=== PATIENT | female | born 1990 | race Two or more races ===

== ENCOUNTER 2019-12-20 19:48 | Observation (INO) | payer BC, MEDICAID ==
[~2019-12-20] VITALS: Ht 162.6 cm; Wt 75.7 kg
[2019-12-20] MEDS ORDERED: LACTATED RINGERS 1,000 ML IV STA (20:43)
[2019-12-20 21:01] LABS: CLARITY URINE CLEAR (CLEAR); COLOR URINE YELLOW (YELLOW); KETONES URINE NEGATIVE (NEGATIVE); LEUKOCYTE ESTERASE URINE NEGATIVE (NEGATIVE); NITRITE URINE NEGATIVE (NEGATIVE); OCCULT BLOOD URINE NEGATIVE (NEGATIVE); PROTEIN URINE 1+ (NEGATIVE)
[2019-12-20] MEDS ORDERED: ONDANSETRON HCL 4MG/2ML INJ IV NR (22:45)
[2019-12-21] MEDS ORDERED: TERBUTALINE SULFATE 1MG/ML VIAL ONE (00:46)
== END 2019-12-20 23:25 | disposition home or self-care (01) ==
LOC: 8 EST LDRP 19:48
PROVIDERS: ADMIT Obstetrics & Gynecology; ATTEND Obstetrics & Gynecology
DX: O26.893 Other specified pregnancy related conditions, third trimester (principal); R10.9 Unspecified abdominal pain; Z3A.35 35 weeks gestation of pregnancy
CPT/HCPCS: 81003; 96374; 99281; G0378; J2405; J3105

== ENCOUNTER 2020-01-04 08:00 | Observation (INO) | payer BC, MEDICAID ==
[~2020-01-04] VITALS: Ht 165.1 cm; Wt 81.6 kg
[2020-01-04] MEDS ORDERED: PREN1TAB78 MT (09:30)
== END 2020-01-04 15:02 | disposition home or self-care (01) ==
LOC: 8 EST LDRP 08:00
PROVIDERS: ADMIT Obstetrics & Gynecology; ATTEND Obstetrics & Gynecology
DX: O62.8 Other abnormalities of forces of labor (principal); O26.893 Other specified pregnancy related conditions, third trimester; R10.9 Unspecified abdominal pain; Z3A.37 37 weeks gestation of pregnancy
CPT/HCPCS: G0378 ×2

== ENCOUNTER 2020-01-05 10:12 | Inpatient (IN) | payer BC, MEDICAID ==
[~2020-01-05] VITALS: Ht 162.6 cm; Wt 78.6 kg
[~2020-01-05 10:12] MED LIST: PREN1TAB78 MT
[2020-01-05] MEDS ORDERED: NALOXONE HCL 0.4 MG/ML 1ML VIAL IM PRN (12:00)
[2020-01-05] MEDS ORDERED: PENICILLIN G POTASSIUM 5 MMU in DEXT 5% WATER 100 ML IV SCH (12:00)
[2020-01-05] MEDS ORDERED: METHYLERGONOVINE MALEATE 0.2 MG/ML IM PRN (12:00)
[2020-01-05] MEDS ORDERED: MINERAL OIL 30ML BOTTLE PR NR (12:00)
[2020-01-05] MEDS ORDERED: LIDOCAINE HCL 1% 20ML VIAL (Pyxis) INJ INFIL SCH (12:00)
[2020-01-05] MEDS ORDERED: RHO(D) IMMUNE GLOBULIN 300 MCG/SYR IM ONE (12:00)
[2020-01-05 12:17] LABS: BASOPHILS % 0.5 % (0.0-2.0); EOSINOPHILS % 0.2 % (0.0-5.0); HEMATOCRIT. 32.3 % (36.0-48.0); HEMOGLOBIN. 10.9 g/dL (12.0-16.0); LYMPHOCYTES % 11.9 % (20.0-50.0); MEAN CORPUSCULAR HEMOGLOBIN 26.8 pg (28.0-32.0); MEAN CORPUSCULAR VOLUME 79.7 fL (81.0-99.0); MEAN PLATELET VOLUME 10.8 fl (7.4-10.4); MONOCYTES % 4.2 % (2.0-8.0); NEUTROPHILS % 83.2 % (40.0-76.0); PLATELET 234 x1000/uL (130-400); RED BLOOD CELL COUNT 4.05 mill/uL (4.2-5.4); RED CELL DISTRIBUTION WIDTH 15.4 % (11.6-14.6)
[2020-01-05 12:38] LABS: INR 0.9; PARTIAL THROMBOPLASTIN TIME 27.2 sec (23.4-31.0); PROTHROMBIN TIME 9.8 sec (9.6-11.0)
[2020-01-05] MEDS: DEXT 5%/LR + PITOCIN 20UNITS/L 1,000 ML IV SCH (13:06)
[2020-01-05] MEDS: PENICILLIN G POTASSIUM 2.5 MMU in DEXTROSE 5% WATER 50 ML IV SCH ×2 (14:30→20:01)
[2020-01-05 15:40] LABS: HEPATITIS B SURFACE ANTIGEN NEGATIVE
[2020-01-05] MEDS ORDERED: PENICILLIN G POTASSIUM 2.5 MMU in DEXTROSE 5% WATER 50 ML IV SCH (16:00)
[2020-01-05 17:07] LABS: CHLORIDE 109 mEq/L (98-107)
[2020-01-05] MEDS: LACTATED RINGERS 1,000 ML IV PRN (18:33)
[2020-01-05] MEDS: BUTORPHANOL TARTRATE 2 MG/ML VIAL IV PRN (22:32)
[2020-01-06 00:17] LABS: CLARITY URINE CLOUDY (CLEAR); COLOR URINE DARK YELLOW (YELLOW); KETONES URINE 3+ (NEGATIVE); LEUKOCYTE ESTERASE URINE 1+ (NEGATIVE); NITRITE URINE NEGATIVE (NEGATIVE); OCCULT BLOOD URINE TRACE (NEGATIVE); PH URINE 6.5 (4.5-8.0); PROTEIN URINE 3+ (NEGATIVE)
[2020-01-06] MEDS: PENICILLIN G POTASSIUM 2.5 MMU in DEXTROSE 5% WATER 50 ML IV SCH ×5 (00:20→16:08)
[2020-01-06 00:28] LABS: *BARBITURATES SCREEN URINE NEGATIVE (NEGATIVE); *COCAINE SCREEN URINE NEGATIVE (NEGATIVE)
[2020-01-06 00:29] LABS: *AMPHETAMINES SCREEN URINE NEGATIVE (NEGATIVE); *BENZODIAZEPINES SCREEN URINE NEGATIVE (NEGATIVE); METHADONE URINE SCREEN NEGATIVE (NEGATIVE); OPIATES URINE SCREEN NEGATIVE (NEGATIVE); PHENCYCLIDINE URINE SCREEN NEGATIVE (NEGATIVE)
[2020-01-06 00:30] LABS: CANNABINOID URINE SCREEN NEGATIVE (NEGATIVE)
[2020-01-06] MEDS: LACTATED RINGERS 1,000 ML IV PRN ×2 (01:57→10:21)
[2020-01-06] MEDS: BUTORPHANOL TARTRATE 2 MG/ML VIAL IV PRN (05:05)
[2020-01-06] MEDS ORDERED: ROPIVACAINE HCL/PF EPIDURAL 200 ML EPI SCH (07:30)
[2020-01-06] MEDS ORDERED: ACETAMINOPHEN 650MG/20.3ML UDC PO PRN (11:30)
[2020-01-06] MEDS ORDERED: ACETAMINOPHEN 325MG TABLET PO PRN (11:45)
[2020-01-06] MEDS ORDERED: LIDOCAINE HCL 2%/EPINEPHRINE 1:100,000 20 ML VIAL INFIL ONE (11:52)
[2020-01-06] MEDS ORDERED: FENTANYL CITRATE/PF 50MCG/ML 2ML VIAL ONE (14:20)
[2020-01-06] MEDS ORDERED: DEXT 5%/LR + PITOCIN 20UNITS/L 1,000 ML IV SCH (18:47)
[2020-01-06] MEDS: DEXT 5%/LR + PITOCIN 20UNITS/L 1,000 ML IV SCH (18:55)
[2020-01-06] MEDS ORDERED: DIPHENHYDRAMINE 25MG CAPSULE PO PRN (19:00)
[2020-01-06] MEDS ORDERED: IBUPROFEN 400MG TABLET PO PRN (19:00)
[2020-01-06] MEDS ORDERED: LANOLIN OINT 7GM TUBE TOP PRN (19:00)
[2020-01-06] MEDS ORDERED: METHYLERGONOVINE MALEATE 0.2 MG/ML IM PRN (19:00)
[2020-01-06] MEDS ORDERED: RHO(D) IMMUNE GLOBULIN 300 MCG/SYR IM PRN (19:00)
[2020-01-06] MEDS: IBUPROFEN 800MG TABLET PO PRN (19:13)
[2020-01-06 20:00] VITALS: BP 140/82
[2020-01-06 20:30] VITALS: BP 142/82
[2020-01-07] VITALS (13 sets, daily range): BP systolic 124–188; BP diastolic 72–119
[2020-01-07 07:27] LABS: BASOPHILS % 0.3 % (0.0-2.0); EOSINOPHILS % 0.6 % (0.0-5.0); HEMATOCRIT. 27.6 % (36.0-48.0); HEMOGLOBIN. 9.2 g/dL (12.0-16.0); MEAN CORPUSCULAR HEMOGLOBIN 26.7 pg (28.0-32.0); MEAN CORPUSCULAR VOLUME 79.8 fL (81.0-99.0); MONOCYTES % 5.6 % (2.0-8.0); NEUTROPHILS % 81.5 % (40.0-76.0); PLATELET 208 x1000/uL (130-400); RED BLOOD CELL COUNT 3.46 mill/uL (4.2-5.4); RED CELL DISTRIBUTION WIDTH 15.2 % (11.6-14.6)
[2020-01-07] MEDS: PRENATAL VIT/FE FUMARATE/FA TABLET PO SCH (09:34)
[2020-01-07] MEDS ORDERED: LABETALOL HCL 200MG TABLET ONE (19:37)
[2020-01-07] MEDS ORDERED: HYDRALAZINE 20MG/ML VIAL ONE (19:43)
[2020-01-07] MEDS ORDERED: HYDRALAZINE 20MG/ML VIAL IV SCH (19:45)
[2020-01-07] MEDS ORDERED: MAGNESIUM 4 G PREMIX 100 ML IV NR (20:15)
[2020-01-07] MEDS ORDERED: LABETALOL HCL 200MG TABLET PO NR (20:18)
[2020-01-07] MEDS ORDERED: IOHEXOL-350 100 ML BOTTLE ONE (21:13)
[2020-01-07] MEDS: MAGNESIUM 20 G PREMIX (L & D) 500 ML IV SCH (21:28)
[2020-01-07 22:02] LABS: BASOPHILS % 0.3 % (0.0-2.0); EOSINOPHILS % 0.5 % (0.0-5.0); HEMATOCRIT. 31.3 % (36.0-48.0); HEMOGLOBIN. 10.5 g/dL (12.0-16.0); LYMPHOCYTES % 10.5 % (20.0-50.0); MEAN CORPUSCULAR HEMOGLOBIN 26.8 pg (28.0-32.0); MEAN CORPUSCULAR VOLUME 79.9 fL (81.0-99.0); MEAN PLATELET VOLUME 9.6 fl (7.4-10.4); MONOCYTES % 4.4 % (2.0-8.0); NEUTROPHILS % 84.3 % (40.0-76.0); PLATELET 228 x1000/uL (130-400); RED BLOOD CELL COUNT 3.92 mill/uL (4.2-5.4); RED CELL DISTRIBUTION WIDTH 15.7 % (11.6-14.6)
[2020-01-07 22:05] LABS: CHLORIDE 108 mEq/L (98-107)
[2020-01-07 22:22] LABS: D-DIMER 10.78 mg/L FEU (<0.50); INR 0.9; PARTIAL THROMBOPLASTIN TIME 27.7 sec (23.4-31.0); PROTHROMBIN TIME 9.5 sec (9.6-11.0)
[2020-01-08] VITALS: BP 133/85
[2020-01-08 00:25] LABS: CLARITY URINE CLEAR (CLEAR); COLOR URINE YELLOW (YELLOW); KETONES URINE NEGATIVE (NEGATIVE); LEUKOCYTE ESTERASE URINE NEGATIVE (NEGATIVE); NITRITE URINE NEGATIVE (NEGATIVE); OCCULT BLOOD URINE 1+ (NEGATIVE); PROTEIN URINE NEGATIVE (NEGATIVE); SPECIFIC GRAVITY URINE 1.034 (1.005-1.030)
[2020-01-08] MEDS: FUROSEMIDE 40MG/4ML VIAL IVP SCH ×4 (00:31→18:10)
[2020-01-08] MEDS: POTASSIUM CHLORIDE 20MEQ TABLET SR PO SCH ×3 (00:31→18:10)
[2020-01-08] MEDS: IBUPROFEN 800MG TABLET PO PRN ×2 (00:48→16:11)
[2020-01-08 04:00] VITALS: BP 137/91
[2020-01-08 06:31] LABS: BASOPHILS % 0.2 % (0.0-2.0); EOSINOPHILS % 0.2 % (0.0-5.0); HEMATOCRIT. 32.3 % (36.0-48.0); HEMOGLOBIN. 10.9 g/dL (12.0-16.0); MEAN CORPUSCULAR HEMOGLOBIN 26.6 pg (28.0-32.0); MEAN CORPUSCULAR VOLUME 79.2 fL (81.0-99.0); MEAN PLATELET VOLUME 9.6 fl (7.4-10.4); MONOCYTES % 4.4 % (2.0-8.0); NEUTROPHILS % 85.2 % (40.0-76.0); PLATELET 255 x1000/uL (130-400); RED BLOOD CELL COUNT 4.08 mill/uL (4.2-5.4); RED CELL DISTRIBUTION WIDTH 15.5 % (11.6-14.6)
[2020-01-08] MEDS: MAGNESIUM 20 G PREMIX (L & D) 500 ML IV SCH (06:34)
[2020-01-08 06:41] LABS: D-DIMER 3.99 mg/L FEU (<0.50); INR 0.9; PARTIAL THROMBOPLASTIN TIME 27.7 sec (23.4-31.0); PROTHROMBIN TIME 9.2 sec (9.6-11.0)
[2020-01-08 06:48] LABS: CHLORIDE 107 mEq/L (98-107)
[2020-01-08] MEDS ORDERED: MAGNESIUM 20 G PREMIX (L & D) 500 ML IV SCH (07:46)
[2020-01-08 08:00] VITALS: BP 157/112
[2020-01-08] MEDS: PRENATAL VIT/FE FUMARATE/FA TABLET PO SCH (08:19)
[2020-01-08 10:06] LABS: CLARITY URINE CLEAR (CLEAR); COLOR URINE YELLOW (YELLOW); KETONES URINE NEGATIVE (NEGATIVE); LEUKOCYTE ESTERASE URINE NEGATIVE (NEGATIVE); NITRITE URINE NEGATIVE (NEGATIVE); OCCULT BLOOD URINE NEGATIVE (NEGATIVE); PH URINE 7.5 (4.5-8.0); PROTEIN URINE NEGATIVE (NEGATIVE); SPECIFIC GRAVITY URINE 1.011 (1.005-1.030); UROBILINOGEN URINE 0.2 E.U./dL (0.2-1.0)
[2020-01-08 12:00] VITALS: BP 141/101
[2020-01-08 12:56] LABS: BASOPHILS % 0.5 % (0.0-2.0); EOSINOPHILS % 0.5 % (0.0-5.0); HEMATOCRIT. 33.5 % (36.0-48.0); HEMOGLOBIN. 11.4 g/dL (12.0-16.0); LYMPHOCYTES % 10.1 % (20.0-50.0); MEAN CORPUSCULAR HEMOGLOBIN 26.8 pg (28.0-32.0); MEAN CORPUSCULAR VOLUME 78.5 fL (81.0-99.0); MEAN PLATELET VOLUME 9.1 fl (7.4-10.4); MONOCYTES % 4.5 % (2.0-8.0); NEUTROPHILS % 84.4 % (40.0-76.0); PLATELET 271 x1000/uL (130-400); RED BLOOD CELL COUNT 4.26 mill/uL (4.2-5.4); RED CELL DISTRIBUTION WIDTH 15.9 % (11.6-14.6)
[2020-01-08] MEDS ORDERED: CEFTRIAXONE 2 G in DEXTROSE 5% WATER 50 ML IV SCH (13:00)
[2020-01-08 13:03] LABS: CHLORIDE 105 mEq/L (98-107)
[2020-01-08 13:41] LABS: D-DIMER 4.46 mg/L FEU (<0.50); INR 0.9; PARTIAL THROMBOPLASTIN TIME 28.1 sec (23.4-31.0); PROTHROMBIN TIME 9.3 sec (9.6-11.0)
[2020-01-08] MEDS ORDERED: AZITHROMYCIN 500 MG in DEXT 5% WATER 250 ML IV SCH (14:00)
[2020-01-08 16:00] VITALS: BP 154/99
[2020-01-08 17:02] LABS: CLARITY URINE CLEAR (CLEAR); COLOR URINE YELLOW (YELLOW); KETONES URINE NEGATIVE (NEGATIVE); LEUKOCYTE ESTERASE URINE NEGATIVE (NEGATIVE); NITRITE URINE NEGATIVE (NEGATIVE); OCCULT BLOOD URINE NEGATIVE (NEGATIVE); PROTEIN URINE 1+ (NEGATIVE); SPECIFIC GRAVITY URINE 1.014 (1.005-1.030)
[2020-01-08 19:46] LABS: BASOPHILS % 0.3 % (0.0-2.0); EOSINOPHILS % 0.6 % (0.0-5.0); HEMATOCRIT. 36.3 % (36.0-48.0); HEMOGLOBIN. 12.2 g/dL (12.0-16.0); MEAN CORPUSCULAR HEMOGLOBIN 26.6 pg (28.0-32.0); MEAN CORPUSCULAR VOLUME 79.3 fL (81.0-99.0); MEAN PLATELET VOLUME 9.8 fl (7.4-10.4); NEUTROPHILS % 85.1 % (40.0-76.0); PLATELET 294 x1000/uL (130-400); RED BLOOD CELL COUNT 4.58 mill/uL (4.2-5.4); RED CELL DISTRIBUTION WIDTH 15.6 % (11.6-14.6)
[2020-01-08 19:53] LABS: CHLORIDE 100 mEq/L (98-107)
[2020-01-08 20:00] VITALS: BP 146/102
[2020-01-08 20:24] LABS: D-DIMER 4.06 mg/L FEU (<0.50); INR 0.9; PARTIAL THROMBOPLASTIN TIME 27.4 sec (23.4-31.0); PROTHROMBIN TIME 9.5 sec (9.6-11.0)
== END 2020-01-08 23:05 | disposition left against medical advice (07) | DRG 806 ==
LOC: 8 EST LDRP 10:12 → INTOOBSV 10:12 → OBSVTOIN 10:12 → 8EST 01-06 21:33 → 6WST 01-07 21:15
PROVIDERS: ADMIT Obstetrics & Gynecology; ATTEND Obstetrics & Gynecology
PROC: 10E0XZZ Delivery of Products of Conception, External Approach (ICD-10-PCS; principal; 2020-01-06)
PROC: 3E0R3BZ Introduction of Anesthetic Agent into Spinal Canal, Percutaneous Approach (ICD-10-PCS; 2020-01-06)
PROC: 00HU33Z Insertion of Infusion Device into Spinal Canal, Percutaneous Approach (ICD-10-PCS; 2020-01-06)
PROC: 0HQ9XZZ Repair Perineum Skin, External Approach (ICD-10-PCS; 2020-01-06)
DX: O99.02 Anemia complicating childbirth (principal); J90 Pleural effusion, not elsewhere classified; Z37.0 Single live birth; O99.12 Other diseases of the blood and blood-forming organs and certain disorders involving the immune mechanism complicating childbirth; J81.1 Chronic pulmonary edema; D64.9 Anemia, unspecified; O70.0 First degree perineal laceration during delivery; Z53.29 Procedure and treatment not carried out because of patient's decision for other reasons; R07.9 Chest pain, unspecified; Z3A.37 37 weeks gestation of pregnancy; Z03.818 Encounter for observation for suspected exposure to other biological agents ruled out; O13.5 Gestational [pregnancy-induced] hypertension without significant proteinuria, complicating the puerperium; D72.829 Elevated white blood cell count, unspecified; O99.214 Obesity complicating childbirth; O99.89 Other specified diseases and conditions complicating pregnancy, childbirth and the puerperium
CPT/HCPCS: 36415; 71045; 71275; 76805; 76818; 80053; 80305; 81003; 83605; 83735; 84145; 84550; 85025; 85379; 85384; 86140; 86592; 86703; 86762; 86850; 86900; 87340; 99281; G0378; J0360; J0456; J0595; J0696; J1940; J2540; J2590; J2795; J3010; J3475; J3490; J7060; Q9967; U0003-CS

== ENCOUNTER 2021-05-25 07:01 | Emergency (ER) | payer BC, MEDICAID ==
[~2021-05-25] VITALS: Ht 162.6 cm; Wt 69.0 kg
[2021-05-25 07:08] VITALS: BP 103/66
[2021-05-25] MEDS ORDERED: CEFTRIAXONE SODIUM 500 MG/VIAL IM ONE (07:30)
[2021-05-25] MEDS ORDERED: LIDOCAINE HCL 1% 20ML VIAL (Pyxis) INJ INFIL ONE (07:30)
[2021-05-25] MEDS ORDERED: LIDOCAINE HCL 1% 10 MG/ML 10ML VIAL IJ NR (07:45)
[2021-05-25 08:25] LABS: CLARITY URINE CLOUDY (CLEAR); COLOR URINE DARK YELLOW (YELLOW); KETONES URINE TRACE (NEGATIVE); LEUKOCYTE ESTERASE URINE 1+ (NEGATIVE); NITRITE URINE NEGATIVE (NEGATIVE); OCCULT BLOOD URINE NEGATIVE (NEGATIVE); PROTEIN URINE TRACE (NEGATIVE); SPECIFIC GRAVITY URINE 1.034 (1.005-1.030)
[2021-05-25] MEDS ORDERED: DOXY100C5 MT (08:37)
[2021-05-25] MEDS ORDERED: METR500T MT (08:37)
[2021-05-25] MEDS ORDERED: NITR-87 MT (08:37)
[2021-05-27 04:09] LABS: NEISSERIA GONORRHOEAE NAA Negative (Negative)
== END 2021-05-25 08:52 | disposition home or self-care (01) ==
LOC: ER 07:01
DX: N39.0 Urinary tract infection, site not specified (principal); A64 Unspecified sexually transmitted disease
CPT/HCPCS: 81003; 81025; 87210; 87491; 87591; 96372; 99283; J0696; J3490

== ENCOUNTER 2022-08-25 14:47 | Inpatient (IN) | payer BC, MEDICAID ==
[~2022-08-25] VITALS: Ht 162.6 cm; Wt 71.2 kg
[~2022-08-25 14:47] MED LIST changes: +DOXY100C5 MT; +METR500T MT; +NITR-87 MT; -PREN1TAB78 MT
[2022-08-25] MEDS: LACTATED RINGERS 1,000 ML IV SCH ×2 (16:50→18:40)
[2022-08-25 17:28] LABS: CLARITY URINE CLEAR (CLEAR); COLOR URINE YELLOW (YELLOW); KETONES URINE NEGATIVE (NEGATIVE); LEUKOCYTE ESTERASE URINE NEGATIVE (NEGATIVE); NITRITE URINE NEGATIVE (NEGATIVE); OCCULT BLOOD URINE NEGATIVE (NEGATIVE); PROTEIN URINE NEGATIVE (NEGATIVE); SPECIFIC GRAVITY URINE 1.005 (1.005-1.030); UROBILINOGEN URINE 0.2 E.U./dL (0.2-1.0)
[2022-08-25] MEDS ORDERED: NALOXONE HCL 0.4 MG/ML 1ML VIAL IM PRN (17:45)
[2022-08-25] MEDS ORDERED: CARBOPROST TROMETHAMINE 250 MCG/ML AMPUL IM PRN (17:45)
[2022-08-25] MEDS ORDERED: LIDOCAINE HCL 1% 20ML VIAL (Pyxis) INJ INFIL SCH (17:45)
[2022-08-25] MEDS ORDERED: PENICILLIN G POTASSIUM 5 MMU in DEXT 5% WATER 100 ML IV NR (17:45)
[2022-08-25] MEDS ORDERED: METHYLERGONOVINE MALEATE 0.2 MG/ML IM PRN (17:45)
[2022-08-25] MEDS ORDERED: RHO(D) IMMUNE GLOBULIN 300 MCG/SYR IM NR (17:45)
[2022-08-25] MEDS ORDERED: DEXT 5%/LACTATED RINGERS 1,000 ML IV SCH (18:00)
[2022-08-25 20:57] LABS: *AMPHETAMINES SCREEN URINE NEGATIVE (NEGATIVE); *BARBITURATES SCREEN URINE NEGATIVE (NEGATIVE); *BENZODIAZEPINES SCREEN URINE NEGATIVE (NEGATIVE); *COCAINE SCREEN URINE NEGATIVE (NEGATIVE); METHADONE URINE SCREEN NEGATIVE (NEGATIVE); OPIATES URINE SCREEN NEGATIVE (NEGATIVE); PHENCYCLIDINE URINE SCREEN NEGATIVE (NEGATIVE)
[2022-08-25 21:01] LABS: BASOPHILS % 0.1 % (0.0-2.0); EOSINOPHILS % 0.6 % (0.0-5.0); HEMATOCRIT. 33.1 % (36.0-48.0); HEMOGLOBIN. 10.8 g/dL (12.0-16.0); LYMPHOCYTES % 14.5 % (20.0-50.0); MEAN CORPUSCULAR HEMOGLOBIN 26.2 pg (28.0-32.0); MEAN CORPUSCULAR VOLUME 80.3 fL (81.0-99.0); MEAN PLATELET VOLUME 9.4 fl (7.4-10.4); MONOCYTES % 5.7 % (2.0-8.0); NEUTROPHILS % 79.1 % (40.0-76.0); PLATELET 346 x1000/uL (130-400); RED BLOOD CELL COUNT 4.12 mill/uL (4.2-5.4); RED CELL DISTRIBUTION WIDTH 14.3 % (11.6-14.6)
[2022-08-25 21:07] LABS: CANNABINOID URINE SCREEN PRESUMTIVE POSITIVE (NEGATIVE)
[2022-08-25 21:10] LABS: INR 0.9; PARTIAL THROMBOPLASTIN TIME 26.6 sec (23.4-31.0)
[2022-08-25] MEDS ORDERED: PENICILLIN G POTASSIUM 2.5 MMU in DEXTROSE 5% WATER 50 ML IV SCH (22:00)
[2022-08-25] MEDS: BUTORPHANOL TARTRATE 2 MG/ML VIAL IV PRN (22:47)
[2022-08-26] MEDS: BUTORPHANOL TARTRATE 2 MG/ML VIAL IV PRN (02:29)
[2022-08-26] MEDS ORDERED: ROPIVACAINE HCL/PF EPIDURAL 200 ML EPI SCH (02:30)
[2022-08-26] MEDS: LACTATED RINGERS 1,000 ML IV SCH (05:12)
[2022-08-26] MEDS: OXYTOCIN 30 UNITS/500ML NS PMX 500 ML IV SCH ×2 (05:28→07:01)
[2022-08-26] MEDS ORDERED: HEMORRHOIDAL SUPP PR PRN (05:45)
[2022-08-26] MEDS ORDERED: LANOLIN OINT 7GM TUBE TOP PRN (05:45)
[2022-08-26] MEDS ORDERED: DIPHENHYDRAMINE 25MG CAPSULE PO PRN (05:45)
[2022-08-26] MEDS ORDERED: ACETAMINOPHEN WITH CODEINE 300/30MG TABLET PO PRN (05:45)
[2022-08-26] MEDS ORDERED: RHO(D) IMMUNE GLOBULIN 300 MCG/SYR IM PRN (05:45)
[2022-08-26] MEDS ORDERED: OXYTOCIN 30 UNITS/500ML NS PMX 500 ML IV SCH (05:45)
[2022-08-26] MEDS ORDERED: METHYLERGONOVINE MALEATE 0.2 MG/ML IM PRN (05:45)
[2022-08-26] MEDS ORDERED: IBUPROFEN 400MG TABLET PO PRN (05:45)
[2022-08-26] MEDS ORDERED: GLYCERIN/WITCH HAZEL LEAF MEDICATED PAD TOP PRN (05:45)
[2022-08-26] MEDS ORDERED: BISACODYL 10MG SUPP PR PRN (05:45)
[2022-08-26] MEDS ORDERED: BENZOCAINE/LANOLIN/ALOE VERA SPRAY TOP PRN (05:45)
[2022-08-26 08:45] VITALS: BP 119/77
[2022-08-26] MEDS: MAGNESIUM/ALUMINUM HYDROXIDE/SIMETHICONE 30ML UDC PO SCH ×3 (08:53→17:21)
[2022-08-26] MEDS: SIMETHICONE 80MG TABLET CHEW PO SCH ×4 (08:53→21:00)
[2022-08-26] MEDS: PRENATAL VIT/FE FUMARATE/FA TABLET PO SCH (08:56)
[2022-08-26] MEDS: IBUPROFEN 800MG TABLET PO PRN ×2 (08:56→17:35)
[2022-08-26 09:00] VITALS: BP 115/70
[2022-08-26 09:15] VITALS: BP 135/76
[2022-08-26 16:22] VITALS: BP 106/69
[2022-08-26] MEDS: DOCUSATE SODIUM 100MG CAPSULE PO SCH (21:00)
[2022-08-26 22:00] VITALS: BP 112/82
[2022-08-27 06:00] VITALS: BP 121/72
[2022-08-27 06:16] LABS: BASOPHILS % 0.4 % (0.0-2.0); EOSINOPHILS % 1.1 % (0.0-5.0); HEMATOCRIT. 29.3 % (36.0-48.0); HEMOGLOBIN. 9.8 g/dL (12.0-16.0); MEAN CORPUSCULAR HEMOGLOBIN 26.6 pg (28.0-32.0); MEAN CORPUSCULAR VOLUME 80.1 fL (81.0-99.0); MEAN PLATELET VOLUME 8.6 fl (7.4-10.4); MONOCYTES % 6.6 % (2.0-8.0); NEUTROPHILS % 66.9 % (40.0-76.0); PLATELET 269 x1000/uL (130-400); RED BLOOD CELL COUNT 3.66 mill/uL (4.2-5.4); RED CELL DISTRIBUTION WIDTH 14.3 % (11.6-14.6)
[2022-08-27] MEDS: MAGNESIUM/ALUMINUM HYDROXIDE/SIMETHICONE 30ML UDC PO SCH ×5 (07:30→21:00)
[2022-08-27] MEDS: FERROUS SULFATE 325MG TABLET PO SCH ×4 (07:30→17:30)
[2022-08-27 08:00] VITALS: BP 140/94
[2022-08-27] MEDS: SIMETHICONE 80MG TABLET CHEW PO SCH ×5 (08:00→21:00)
[2022-08-27] MEDS: PRENATAL VIT/FE FUMARATE/FA TABLET PO SCH (08:38)
[2022-08-27] MEDS: IBUPROFEN 800MG TABLET PO PRN ×2 (08:39→11:36)
[2022-08-27 09:10] LABS: HIV SCREEN 4G Non Reactive (Non Reactive)
[2022-08-27 11:40] VITALS: BP 128/94
[2022-08-27 16:00] VITALS: BP 124/79
[2022-08-27 20:30] VITALS: BP 123/75
[2022-08-27] MEDS: DOCUSATE SODIUM 100MG CAPSULE PO SCH (21:00)
[2022-08-28 03:00] VITALS: BP 115/64
[2022-08-28] MEDS ORDERED: IBUP-2030 PO (06:59)
[2022-08-28 08:00] VITALS: BP 137/64
== END 2022-08-28 11:45 | disposition home or self-care (01) | DRG 806 ==
LOC: 8 EST LDRP 14:47 → OBSVTOIN 14:47 → 8EST 08-26 09:46
PROVIDERS: ADMIT Obstetrics & Gynecology; ATTEND Obstetrics & Gynecology
PROC: 10E0XZZ Delivery of Products of Conception, External Approach (ICD-10-PCS; principal; 2022-08-26)
PROC: 3E0S3BZ Introduction of Anesthetic Agent into Epidural Space, Percutaneous Approach (ICD-10-PCS; 2022-08-26)
PROC: 00HU33Z Insertion of Infusion Device into Spinal Canal, Percutaneous Approach (ICD-10-PCS; 2022-08-26)
DX: O80 Encounter for full-term uncomplicated delivery (principal); D62 Acute posthemorrhagic anemia; Z37.0 Single live birth; Z3A.37 37 weeks gestation of pregnancy; Z20.822 Contact with and (suspected) exposure to COVID-19
CPT/HCPCS: 36415; 76805; 76818; 80305; 80349; 81003; 85025; 86592; 86762; 86850; 86900; 87340; 87389; 87426; 99281; G0378; J0595; J2540; J2795; J3490; J7060; J7120; J7121; J2590